=== PATIENT | female | born 1990 | race African-American/Black ===

== ENCOUNTER 2021-04-03 09:43 | Emergency (ER) | payer OTHER ==
[~2021-04-03] VITALS: Ht 160 cm; Wt 63.5 kg
--- NOTE | ~2021-04-03 | EMS ---
[address] [address] EMS Patient Care Report Name: ANN-MARIE URBANO Room #: PRE M.R.#: [id number] Admission: Attend Phys: Discharge: Date of : [birth year] Report #: [id number] THIS REPORT FOR: //name// Report Transmitted: 04/03/2021 10:07 EMS Care Summary [place], [place]/[facility] Incident [id number] @ 04/03/2021 09:20 Incident Location [id number] [facility] Patient ANN-MARIE URBANO Female, 31 Years 1990 Patient Address [address] [place] [id number] Patient History Depression,Anxiety, Patient Allergies No known allergies, Patient Medications Celexa, Chief Complaint Altered mental status Disposition Transported No Lights/[place] Reason Allergic Reaction/Stings Transported To [facility] Narrative Arrived on scene to find our patient seated in a conference room at the senior care. 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 EMS was called for a possible allergic reaction of the patient's prescribed medications. Patient denied any chest pain, soa, n/v, diarrhea, or [address] [address] EMS Patient Care Report Name: ANN-MARIE URBANO Room #: PRE Jose#: [id number] Admission: Attend Phys: Discharge: Date of : [birth year] Report #: [id number] any perceived confusion. Patient refused to answer if she had taken any medications, drugs, or alcohol. Patient was slurring her speech upon our arrival and unable to answer orientation questions correctly. Patient was unaware of her slurred speech and was unaware that she was not answering orientation questions correctly. Patient was less the cooperative with EMS. Vital signs and glucose obtained. Patient transported and transferred to receiving facility without change in patient condition. Initial Vitals @09:28P: 116,R: 16,BP: 133/90,Pain: 0/10,GCS: 14,Glucose: 122,CO: 1,SpO2: 98,Revised Trauma: 12, @09:33P: 108,R: 16,BP: 142/96,Pain: 0/10,GCS: 14,CO: 2,SpO2: 99,Revised Trauma: 12, Assessments @09:28MENTAL:Person Oriented,Confused,Place Oriented,SKIN:HEENT:Head/Face: No Abnormalities,Eyes: No Abnormalities,Neck/Airway: No Abnormalities,LUNG SOUNDS:General: No Abnormalities,Left Upper: No Abnormalities,Right Upper: No Abnormalities,Left Lower: No Abnormalities,Right Lower: No Abnormalities,ABDOMEN:General: No Abnormalities,Left Upper: No Abnormalities,Right Upper: No Abnormalities,Left Lower: No Abnormalities,Right Lower: No Abnormalities,PELVIS//GI:No Abnormalities,EXTREMITIES:Left Arm: No Abnormalities,Right Arm: No Abnormalities,Left Leg: No Abnormalities,Right Leg: No Abnormalities,PULSE:NEURO:No Abnormalities, Impression Altered Mental Status Procedures @09:28 ALS Assessment Response: UnchangedSucceeded Timeline 09:18,Call Received 09:18,Dispatch Notified 09:20,Dispatched 09:25,En Route 09:27,On Scene 09:28,At Patient 09:28,ALS Assessment,Response: UnchangedSucceeded, 09:28,BP: 133/90 M,PULSE: 116,RR: 16 R,SPO2: 98 Ox,ETCO2: ,B,PAIN: 0,GCS: 14, 09:33,BP: 142/96 M,PULSE: 108,RR: 16 R,SPO2: 99 Ox,ETCO2: ,BG: ,PAIN: 0,GCS: 14, 09:36,Depart Scene [address] [address] EMS Patient Care Report Name: URBANOANN-MARIE Room #: PRE M.R.#: [id number] Admission: Attend Phys: Discharge: Date of : [birth year] Report #: [id number] 09:40,At Destination 09:51,Call Closed Disclaimer v1.1 Copyright 2020 [employer] This EMS Care Summary contains data elements from the applicable legal record (which may be displayed differently). It is designed to provide pertinent information for the following purposes: continuity of care, clinical quality, and state data reporting. The complete legal record is available to ED staff and administrators of the receiving hospital in [employer]'s Patient Tracker. All data is provided "as is."
[2021-04-03 10:28] LABS: ABSOLUTE NEUTROPHILS 7.8 thou/uL (1.4-8.2); EOSINOPHILS 0.8 % (0.0-3.0); HEMATOCRIT 42.8 % (37.0-47.0); HEMOGLOBIN 13.8 gm/dL (12.0-15.0); MCH 30.9 pg (26.0-34.0); MCHC 32.3 g/dL (28.0-37.0); MCV 95.7 fL (80.0-100.0); MONOCYTES 3.8 % (1.0-8.0); PLATELET COUNT 323 thou/uL (150-400); POLYS 69.4 % (36.0-66.0); RBC 4.48 mil/uL (4.20-5.00); RDW 12.5 % (10.5-14.5); WBC 11.2 thou/uL (4.0-11.0)
[2021-04-03 10:37] LABS: AMP/METHAMP Negative (Negative); BARBITURATES Negative (Negative); BENZODIAZEPINES Negative (Negative); COCAINE Negative (Negative); METHADONE Negative (Negative); OPIATES Negative (Negative); PCP POSITIVE (Negative)
[2021-04-03 10:43] LABS: CALCIUM 8.9 mg/dL (8.5-10.1); CREATININE 0.9 mg/dL (0.6-1.0); POTASSIUM 3.5 mmol/L (3.5-5.1)
[2021-04-03 15:17] VITALS: BP 133/102
== END 2021-04-03 15:30 | disposition home or self-care (01) ==
LOC: ER 09:43
PROVIDERS: Student in an Organized Health Care Education/Training Program
DX: F10.129 Alcohol abuse with intoxication, unspecified (principal); R41.82 Altered mental status, unspecified; F19.129 Other psychoactive substance abuse with intoxication, unspecified; Y90.4 Blood alcohol level of 80-99 mg/100 ml